=== PATIENT | female | born 1940 | race Caucasian/White ===

== ENCOUNTER 2020-10-08 09:34 | Emergency (ER) | payer MEDICARE, OTHER ==
--- NOTE | 2020-10-08 09:44 | ED Physician Documentation ---
PD HPI LOWER EXT INJURY - Stated complaint Stated Complaint: RT LEG LAC - Chief complaint Chief Complaint: Laceration - History obtained from History obtained from: Patient - History of Present Illness PD HPI LOW EXT INJURY LOCATION: Right, Lower leg (anterior aspect over the marks.) Type of injury: Fall (she states she slipped over a stool and fell forward and shins hit some part of it on way. Bruising left mid marks, and large laceration right marks.) Where injury occurred: Home Timing - onset: Today Timing - details: Abrupt onset Worsened by: Palpating. No: Moving Associated symptoms: No: Weakness, Numbness Similar symptoms before: Has not had sx before Review of Systems Constitutional: denies: Fever Nose: denies: Rhinorrhea / runny nose, Congestion Throat: denies: Sore throat Respiratory: denies: Cough Neurologic: denies: Focal weakness, Numbness PD PAST MEDICAL HISTORY - Past Medical History Past Medical History: No - Present Medications Home Medications: Ambulatory Orders Medication Instructions Recorded Confirmed Atorvastatin [Lipitor] 10 mg PO DAILY 10/08/20 10/08/20 - Allergies Allergies/Adverse Reactions: Allergies Allergy/AdvReac Type Severity Reaction Status Date / Time Tetracyclines Allergy Rash Verified 10/08/20 09:38 codeine AdvReac Nausea Verified 10/08/20 09:38 - Living Situation Living Situation: reports: Alone Living Arrangement: reports: At home PD ED PE NORMAL - Vitals Vital signs reviewed: Yes - General General: Alert and oriented X 3, No acute distress, Well developed/nourished - Derm Derm: Normal color, Warm and dry - Extremities Extremities: Other (The patient was ambulatory to the ER. She has a bruising and tenderness to the left anterior marks. No obvious bony deformity. Large laceration of the right anterior marks, V-shaped, 30 cm total length. Down to fatty tissue. No FB. Minimal bleeding. Edges ar slightly thin. ) - Neuro Neuro: Alert and oriented X 3, No motor deficit, No sensory deficit, Normal speech Results - Vitals Vitals: Vital Signs - 24 hr 10/08/20 10/08/20 10/08/20 09:39 09:53 12:15 Temperature 36.5 C Heart Rate 94 77 99 Respiratory 16 16 16 Rate Blood Pressure 159/81 H 174/70 H 137/70 H O2 Saturation 100 99 98 10/08/20 12:20 Temperature Heart Rate 99 Respiratory 18 Rate Blood Pressure 137/70 H O2 Saturation 100 Oxygen O2 Source Room air Procedures - Laceration (location) right lower leg Length in cm: 30 Wound type: Flap Neurovascular status: Sensory intact, Motor intact, Vascular intact Tendon involvement: Tendon intact Anesthesia: Lidocaine 2% with epi, Marcaine 0.5% with epi Wound preparation: Irrigated copiously NS (tap water too), Wound explored, To the base, debridement of wound edges (traumatic laceration/avulsion). No: FB identified Deep layer closure: Vicryl, size #-0 - enter number (4), # sutures - enter number (15) Skin layer closure: Nylon, Running, Size #-0 - enter number (4), Sutures - enter # (49) Other: Patient tolerated well, No complications, Neurovascular intact, Dressing applied, Tetanus UTD (she was not sure, but then said UTD and declined booster.) PD MEDICAL DECISION MAKING - ED course Complexity details: considered differential (large flap lac but not involving muscle. Minimal bleeding. No noted bony injury though lateral anterior periosteum is exposed. ), d/w patient Departure - Departure Disposition: 01 Home, Self Care Clinical Impression: Laceration of right lower leg Qualifiers: Encounter type: initial encounter Qualified Code(s): S81.811A - Laceration without foreign body, right lower leg, initial encounter Accidental fall Qualifiers: Encounter type: initial encounter Qualified Code(s): W19.XXXA - Unspecified fall, initial encounter Contusion of leg, left Qualifiers: Encounter type: initial encounter Qualified Code(s): S80.12XA - Contusion of left lower leg, initial encounter Condition: Stable Instructions: ED Laceration All Follow-Up: Beronica Patino MD [Primary Care Provider] - Comments: It is okay to wash and shower. Clean off the wound twice a day with soap and water, or peroxide and water. Apply some antibiotic ointment to it to keep it moist. Also to watch for signs of infection such as purulence, redness or increasing pain. Return to your primary care or the ER at the specified time for suture removal. Suture removal 10 to 14 days. Elevate Nasir wrap and rest the leg often today and tomorrow to reduce swelling. Discharge Date/Time: 10/08/20 12:35
[2020-10-08] MEDS ORDERED: BUPIVACAINE 0.5%-EPI 1:200000 PF 30 ML VIAL SUBQ ONE (09:51)
[2020-10-08] MEDS ORDERED: LIDOCAINE 2%-EPI 1:100000 20 ML MDV SUBQ ONE (10:39)
[2020-10-08 12:16] VITALS: BP 137/70
[2020-10-08] MEDS ORDERED: TETANUS/DIPHTHERIA/PERTUSSIS 0.5 ML SYRINGE IM ONE (12:32)
== END 2020-10-08 12:35 | disposition home or self-care (01) ==
LOC: ED 09:34
DX: S81.811A Laceration without foreign body, right lower leg, initial encounter (principal); S80.12XA Contusion of left lower leg, initial encounter; W18.09XA Striking against other object with subsequent fall, initial encounter; Y93.01 Activity, walking, marching and hiking; Y92.009 Unspecified place in unspecified non-institutional (private) residence as the place of occurrence of the external cause
CPT/HCPCS: 12036

== ENCOUNTER 2020-10-21 12:54 | Emergency (ER) | payer MEDICARE, OTHER ==
--- NOTE | 2020-10-21 13:52 | ED Physician Documentation ---
PD HPI WOUND RECHECK - Stated complaint Stated Complaint: STITCHES REMOVAL - Chief complaint Chief Complaint: Wound - Histroy obtained from History obtained from: Patient - History of Present Illness Location: Right Lower Extremity Timing - onset: How many days ago (14) Pain level max: 1 Pain level now: 1 Associated symptoms: Redness, Drainage (clear/bloody). No: Fever, Swelling - Additional information Additional information: Patient was seen for cellulitis and started on Keflex 2 days ago. She states the redness is improving. There has been no purulent drainage. No fevers. No chills. Review of Systems Constitutional: denies: Fever, Chills Respiratory: denies: Cough GI: denies: Nausea, Vomiting, Diarrhea PD PAST MEDICAL HISTORY - Past Medical History Cardiovascular: High cholesterol - Past Surgical History Past Surgical History: No - Present Medications Home Medications: Ambulatory Orders Medication Instructions Recorded Confirmed Atorvastatin [Lipitor] 10 mg PO DAILY 10/08/20 10/21/20 Sulfamethox/Trimeth 800/160 1 each PO BID #14 tablet 10/21/20 [Bactrim Ds 800/160] - Allergies Allergies/Adverse Reactions: Allergies Allergy/AdvReac Type Severity Reaction Status Date / Time Tetracyclines Allergy Rash Verified 10/21/20 13:50 codeine AdvReac Nausea Verified 10/21/20 13:50 - Social History Does the pt smoke?: No Smoking Status: Never smoker Does the pt drink ETOH?: Yes Does the pt have substance abuse?: No - Immunizations Immunizations are current?: No - POLST Patient has POLST: No PD ED PE NORMAL - Vitals Vital signs reviewed: Yes - General General: Alert and oriented X 3, No acute distress - HEENT HEENT: Moist mucous membranes - Derm Derm: Warm and dry - Extremities Extremities: Other (Large laceration to the anterior aspect of the right marks. There is mild surrounding cellulitis, no warmth. She does have an area of darkened skin near the base of the V shaped laceration. This was where the reported seroma was.) - Neuro Neuro: Alert and oriented X 3 - Psych Psych: Normal mood, Normal affect Results - Vitals Vitals: Vital Signs - 24 hr 10/21/20 13:02 Temperature 37.0 C Heart Rate 115 H Respiratory 19 Rate Blood Pressure 149/89 H O2 Saturation 100 Oxygen O2 Source Room air PD MEDICAL DECISION MAKING - ED course Complexity details: reviewed old records, considered differential, d/w patient ED course: Sutures were removed in the emergency department. Tolerated well. Mepitel was applied over the wound. We will have her continue basic wound care at home. We will add Bactrim to the Keflex for MRSA coverage. There is no purulent dr calderon. The erythema is improving per the patient on Keflex. Patient was counseled at length regarding possible need for wound care for the anterior flap. Patient will be seen by her primary care provider at the [facility] next week for a wound recheck. If she is still having issues with healing, she should be referred to wound care at that point by her doctor. Patient counseled regarding signs and symptoms for which I believe and urgent re-evaluation would be necessary. Patient with good understanding of and agreement to plan and is comfortable going home at this time This document was made in part using voice recognition software. While efforts are made to proofread this document, sound alike and grammatical errors may occur. Departure - Departure Disposition: 01 Home, Self Care Clinical Impression: Visit for suture removal Cellulitis Qualifiers: Site of cellulitis: extremity Site of cellulitis of extremity: lower extremity Laterality: right Qualified Code(s): L03.115 - Cellulitis of right lower limb Condition: Good Instructions: ED Infec Skin Cellulitis Follow-Up: Beronica Patino MD [Primary Care Provider] - Within 1 week Prescriptions: Sulfamethox/Trimeth 800/160 [Bactrim Ds 800/160] 1 each PO BID #14 tablet Comments: Continue the Keflex as previously prescribed to you. Take the Bactrim as well. Return if you worsen. The Mepitel can come off in about a week. You should be reevaluated by your doctor within 1 week. If you are still having issues with wound healing, you will likely need to be referred to wound care. There is [facility] care at [place] [facility] [place].
[2020-10-21 14:47] VITALS: BP 136/78
== END 2020-10-21 14:10 | disposition home or self-care (01) ==
LOC: ED 12:54
DX: S81.811D Laceration without foreign body, right lower leg, subsequent encounter (principal); X58.XXXD Exposure to other specified factors, subsequent encounter; L03.115 Cellulitis of right lower limb
CPT/HCPCS: 99283